=== PATIENT | male | born 1940 | race Caucasian/White ===

== ENCOUNTER → 2017-08-02 16:25 | Outpatient (CLI) | payer MEDICARE, SELFPAY ==
[2017-08-02 17:11] LABS: Hematocrit 36.6 % (40-54); Hemoglobin 11.7 g/dl (13.0-16.5); Mean Corpuscular Volume 84.3 fL (80-94); Mean Platelet Vol. 11.4 fl (6.2-12.0); Platelet Count 189 K/mm3 (150-450); RBC Distribution Width SD 45.4 fl (35.1-43.9); Red Blood Count 4.34 M/mm3 (4.6-6.2); White Blood Count 7.5 K/mm3 (4.4-11.0)
[2017-08-02 17:14] LABS: Scan Indicated on CBC? Y/N NO
[2017-08-02 17:48] LABS: Hemoglobin A1c 5.2 % (4.2-6.3)
[2017-08-02 18:40] LABS: AST(SGOT) 23 U/L (15-37); Alanine Aminotransfer ALT/SGPT 26 U/L (16-61); Albumin, Serum 3.4 g/dL (3.2-5.0); Alkaline Phosphatase 75 U/L (45-117); Anion Gap 7 (5-15); BUN 22 mg/dL (7-18); BUN/Creat Ratio 27.1 RATIO (10-20); Calcium,Total 8.5 mg/dL (8.5-10.1); Chloride 109 mmol/L (98-107); Creatinine, Serum 0.81 mg/dL (0.70-1.30); EST Glomerular Filtration Rate 98 mL/min (>60); Est Glom Filt Rate - Afr Amer 119 mL/min (>60); Globulin 3.4 g/dL (2.2-4.2); Glucose 90 mg/dL (74-106); Potassium 4.4 mmol/L (3.5-5.1); Protein, Total 6.8 g/dL (6.4-8.2); Rheumatoid Factor < 10.0 IU/mL (<15); Sodium Level 141 mmol/L (136-145); T4 Free Direct 1.12 ng/dL (0.76-1.46); T4 Total, Thyroxin 7.4 ug/dL (4.5-12.1); Thyroid Stim Hormone (TSH) 1.02 uIU/mL (0.358-3.74)
[2017-08-02 18:41] LABS: Rubella IgG > 500.0 IU/mL; Vitamin B12 684 pg/mL (211-911)
[2017-08-09 01:08] LABS: Rapid Plasmin Reagin (RPR) NONREACTIVE (NONREACTIVE)
== END ==
PROVIDERS: Visit Provider Nurse Practitioner Acute Care
DX: E88.9 Metabolic disorder, unspecified (principal); R25.1 Tremor, unspecified; R42 Dizziness and giddiness
CPT/HCPCS: 36415; 80053; 82607; 82746; 83036; 84436; 84439; 84443; 84481; 85027; 86431; 86592; 86762